=== PATIENT | female | born 1960 | race Caucasian/White ===

== ENCOUNTER → 2017-02-27 | Outpatient (CLI) | payer BC ==
[~2017-02-27] MED LIST: AMIODARONE HCL200 MG PO; CARAFATE1 GM/10 ML PO; Eliquis PO; IRON325 M1 PO; LASIX20 MG PO; LEXAPRO10 MG PO; LEXAPRO20 MG PO; LISINOPRIL10 MG PO; MULTAQ400 MG PO; PACERONE100 MG PO; POTASSIUM CHLO10 MEQ PO; PRADAXA75 MG PO; PROPAFENONE HC325 MG PO; SYNTHROID175 MCG PO; SYNTHROID200 MCG PO; ULTRAM50 MG PO; XARELTO PO; XARELTO20 MG PO; XYZAL5 MG PO; ZESTRIL20 MG PO
== END ==
LOC: MAMMO 11:46
PROVIDERS: ATTEND Internal Medicine
DX: Z12.31 Encounter for screening mammogram for malignant neoplasm of breast (principal)
CPT/HCPCS: G0202

== ENCOUNTER → 2017-02-27 | Outpatient (CLI) | payer BC ==
--- NOTE | 2017-02-27 07:14 | Diagnostic Imaging Report ---
PROCEDURE:CHEST 2 VIEWS TECHNIQUE:PA and lateral chest INDICATION:Cough for 3 weeks COMPARISON:None. FINDINGS: The lungs are clear and symmetrically inflated. No pleural effusions. Upper limits of normal heart size for technique no abnormal central vasculature. The indwelling loop recorder. Intact skeleton. Upper abdominal surgical clips. CONCLUSION: No acute abnormality. Specifically, no evidence of pneumonia. Dictated by: Ranjith Menard M.D. on 02/27/2017 at 7:23 Electronically approved by: Ranjith Menard M.D. on 02/27/2017 at 7:23
== END ==
LOC: RAD 06:45
PROVIDERS: ATTEND Internal Medicine
DX: R05 Cough (principal)
CPT/HCPCS: 71020

== ENCOUNTER → 2017-04-17 | Outpatient (CLI) | payer BC ==
--- NOTE | 2017-04-27 22:59 | Polysomnography ---
DATE OF STUDY: April 17, 2017 TITRATION POLYSOMNOGRAM HISTORY: This is a 56-year-old female with snoring, apneas and insomnia. She has a history of obstructive sleep apnea and uses CPAP, thyroid disorder, allergies, depression, hypertension, atrial fibrillation, gastric bypass surgery in 2006. Current medications include Synthroid, Lexapro, lisinopril, Xarelto, other cardiac medications. [place] sleepiness scale score is 12. BMI is 35.1. Patient presents for a titration polysomnogram. FINDINGS: Polysomnogram reveals a total sleep time of 253.5 minutes with sleep efficiency of 79.4%. CPAP was initiated at 5 cm of water and incrementally increased to 11 cm of water, delivered using a ResMed AirFit P10 medium sized nasal pillows interface, heated humidifier. Sleep apnea was optimally controlled at the pressure setting of 11 cm of water where the apnea-hypopnea index was zero events per hour and the lowest oxygen saturation was 95%. REM sleep was studied in the supine position at this setting. Due to significant air leak, the nasal pillows interface had to be used with chin strap. Periodic limb movements while awake were noted during this study. Furthermore, a total of 649 periodic limb movements in sleep were noted for periodic limb movement index of 110.2 events per hour. These events often involved ankle flexion and foot flexion maneuvers at most. These were not often associated with EEG arousals. The periodic limb movements at sleep tended to extinguish after 2:05 a.m. Single lead EKG analysis demonstrated sinus rhythm and was otherwise unremarkable. INTERPRETATION: This overnight CPAP titration study revealed, 1. Significant improvement in terms of alleviation of obstructive sleep apnea at the optimal CPAP pressure of 11 cm of water, delivered using a medium ResMed AirFit P10 nasal pillows interface, heated humidifier and chin strap. The same settings are recommended for use during sleep. 2. Periodic limb movements when awake and when asleep. Periodic leg movements in sleep index was 110.2 events per hour. Additional movements were noted when awake. Periodic limb movements can be seen during CPAP titration and may subside after compliant use of CPAP. Periodic limb movement disorder (periodic limb movements of sleep disorder) can be associated with or secondary to conditions such as restless legs syndrome, iron deficiency anemia, electrolyte imbalance such as hypomagnesemia, peripheral neuropathy, and use of certain medications. These limb movements should be addressed if they are bothering the patient when awake. If they continue to be associated with clinical sleep disturbances or complaints of daytime fatigue, a full work up with possible escalation in medicines should be considered. Antelmo Polo M.D. [facility] Certified in Sleep Medicine Job#: [id number] GE MTDD
== END ==
LOC: SLEEP 20:13
PROVIDERS: ATTEND Internal Medicine
DX: G47.33 Obstructive sleep apnea (adult) (pediatric) (principal)
CPT/HCPCS: 95811

== ENCOUNTER → 2017-06-03 | Outpatient (CLI) | payer BC ==
--- NOTE | 2017-06-03 09:04 | Diagnostic Imaging Report ---
Exam: Left shoulderCT without contrast. History: Shoulder pain. Injury. Decreased range of motion. Comparison:None Technique: Utilizing a 64-slice multidetector CT, axial imaging was performed through the left shoulder without IV contrast. Multiplanar reformation was performed. Findings: There is no acute fracture, subluxation or avascular necrosis. Moderate degenerative changes are seen at the acromioclavicular joint with undersurface spurring and narrowing of the supraspinatus tendon outlet. The rotator cuff muscles are normal in size and morphology. There is mild degenerative arthrosis at the glenohumeral joint. The visualized portion of the left lung is grossly unremarkable. Metallic foreign body in the superficial anterior left chest. Impression: Scattered degenerative arthrosis about the left shoulder. No osseous erosion. Signed by: Dr. Uvaldo Jane M.D. on 06/03/2017 9:00 AM
== END ==
LOC: CT 06:05
PROVIDERS: ATTEND Internal Medicine
DX: S49.92XA Unspecified injury of left shoulder and upper arm, initial encounter (principal)

== ENCOUNTER 2017-09-09 08:46 | Emergency (ER) | payer BC | END 2017-09-09 09:01 | disposition short-term general hospital (02) | LOC: ER 08:46 | DX: S69.91XA Unspecified injury of right wrist, hand and finger(s), initial encounter (principal) ==

== ENCOUNTER → 2017-09-09 | Outpatient (CLI) | payer BC ==
--- NOTE | 2017-09-09 11:24 | Diagnostic Imaging Report ---
PROCEDURE:HAND RIGHT 3 VIEWS AP \T\ LAT COMPARISON:None. INDICATIONS:POST FALL FRIDAY. PAIN/BRUISING TO POSTERIOR HAND/MEDIAL WRIST FINDINGS: 3 views of the right hand (AP, lateral, and oblique) There are no fractures, dislocations, lytic or blastic lesions. The bones are well-mineralized. The soft-tissues are unremarkable. There are degenerative changes of the DIP joints and at the basilar joint of the thumb. The there is narrowing of the radiocarpal joints. CONCLUSION: No acute radiographic abnormality of the right hand. Dictated by: Ezra Alan M.D. on 09/09/2017 at 11:29 Electronically approved by: Ezra Alan M.D. on 09/09/2017 at 11:29
== END ==
LOC: RAD 09:58
PROVIDERS: ATTEND Internal Medicine
DX: M79.641 Pain in right hand (principal)

== ENCOUNTER → 2017-09-11 | Outpatient (CLI) | payer BC | LOC: SLEEP 14:08 | PROVIDERS: ATTEND Internal Medicine | DX: G47.33 Obstructive sleep apnea (adult) (pediatric) (principal) | CPT/HCPCS: 95810 ==

== ENCOUNTER → 2017-11-10 | Outpatient (CLI) | payer BC | LOC: RAD 12:35 | PROVIDERS: ATTEND Specialist | DX: I87.2 Venous insufficiency (chronic) (peripheral) (principal) | CPT/HCPCS: 93970 ==

== ENCOUNTER 2017-12-08 05:06 | Emergency (ER) | payer BC ==
[~2017-12-08] VITALS: Ht 160 cm; Wt 85.3 kg
[2017-12-08] MEDS ORDERED: SILVER NITRATE SWABS ONE (05:15)
[2017-12-08] MEDS ORDERED: SILVER NITRATE SWABS TOP ONE (05:30)
[2017-12-08 05:33] VITALS: BP 137/74
== END 2017-12-08 05:45 | disposition home or self-care (01) ==
LOC: ER 05:06
DX: I83.891 Varicose veins of right lower extremity with other complications (principal); I10 Essential (primary) hypertension; E03.9 Hypothyroidism, unspecified; I48.91 Unspecified atrial fibrillation; F41.9 Anxiety disorder, unspecified; Z98.84 Bariatric surgery status
CPT/HCPCS: 99283

== ENCOUNTER 2018-03-25 05:45 | Emergency (ER) | payer BC ==
[~2018-03-25] VITALS: Ht 160 cm; Wt 85.3 kg
[2018-03-25 06:08] LABS: BASOPHILS # (AUTO) 0.1 (0.0-0.1); EOSINOPHILS # (AUTO) 0.1 (0.0-0.4); EOSINOPHILS % 0.8 % (0.0-6.0); HEMATOCRIT 40.3 % (34.2-44.1); HEMOGLOBIN 13.3 g/dL (12.0-16.0); LYMPHOCYTES # (AUTO) 2.4 (1.0-3.2); LYMPHOCYTES % 26.8 % (18.0-39.1); MEAN CORPUSCULAR HEMOGLOBIN 30.4 pg (28-32); MEAN CORPUSCULAR VOLUME 92.2 fL (81-99); MONOCYTES % 10.6 % (4.4-11.3); NEUTROPHILS # (AUTO) 5.5 (2.1-6.9); NEUTROPHILS % 60.6 % (38.7-80.0); PLATELET COUNT 347 x10e3/uL (140-360); RED BLOOD COUNT 4.37 x10e6/uL (3.6-5.1); RED CELL DISTRIBUTION WIDTH 13.2 % (11.7-14.4)
[2018-03-25 06:20] LABS: INR 0.97; PROTHROMBIN TIME 13.8 seconds (11.9-14.5)
[2018-03-25 06:21] LABS: PARTIAL THROMBOPLASTIN TIME 25.3 seconds (23.8-35.5)
[2018-03-25 06:26] LABS: ALANINE AMINOTRANSFERASE 17 IU/L (0-55); ALBUMIN 3.6 g/dL (3.5-5.0); ALBUMIN/GLOBULIN RATIO 1.1 (0.8-2.0); ALKALINE PHOSPHATASE 111 IU/L (40-150); ANION GAP 13.6 mmol/L (8-16); BLOOD UREA NITROGEN 11 mg/dL (7-26); BUN/CREATININE RATIO 15 (6-25); CALCIUM 9.1 mg/dL (8.4-10.2); CARBON DIOXIDE 24 mmol/L (22-29); CHLORIDE 101 mmol/L (98-107); CREATINE KINASE 108 IU/L (29-168); CREATININE, SERUM 0.71 mg/dL (0.57-1.11); EST GLOMERULAR FILTRATION RATE > 60 ML/MIN (60-); GLUCOSE 144 mg/dL (74-118); POTASSIUM 3.6 mmol/L (3.5-5.1); SODIUM 135 mmol/L (136-145)
--- NOTE | 2018-03-25 06:40 | Diagnostic Imaging Report ---
EXAMINATION: CHEST SINGLE (PORTABLE) INDICATION: Shortness of breath. COMPARISON: Chest x-ray 02/27/2017 FINDINGS: AP view TUBES and LINES: None. LUNGS: Lungs are well inflated. Lungs are clear. There is no evidence of pneumonia or pulmonary edema. PLEURA: No pleural effusion or pneumothorax. HEART AND MEDIASTINUM: The cardiomediastinal silhouette is unremarkable. BONES AND SOFT TISSUES: No acute osseous lesion. Soft tissues are unremarkable. UPPER ABDOMEN: No free air under the diaphragm. IMPRESSION: No acute thoracic abnormality. Signed by: DR. Jake Aguiar MD on 03/25/2018 6:36 AM
== END 2018-03-25 06:49 | disposition home or self-care (01) ==
LOC: ER 05:45
DX: R00.2 Palpitations (principal); I48.0 Paroxysmal atrial fibrillation
CPT/HCPCS: 36415; 71045; 80053; 82550; 82553; 84484; 85025; 85610; 85730; 93005; 99283

== ENCOUNTER 2019-05-10 21:58 | Emergency (ER) | payer BC ==
[~2019-05-10] VITALS: Ht 160 cm; Wt 85.3 kg
[2019-05-10] MEDS ORDERED: GLUCAGON FOR INJ 1 MG VIAL IV ONE (22:15)
[2019-05-10 22:16] LABS: BASOPHILS # (AUTO) 0.1 (0.0-0.1); BASOPHILS % 0.9 % (0.0-1.0); EOSINOPHILS # (AUTO) 0.3 (0.0-0.4); EOSINOPHILS % 3.1 % (0.0-6.0); HEMATOCRIT 38.7 % (34.2-44.1); HEMOGLOBIN 12.6 g/dL (12.0-16.0); LYMPHOCYTES # (AUTO) 5.6 (1.0-3.2); LYMPHOCYTES % 58.4 % (18.0-39.1); MEAN CORPUSCULAR HEMOGLOBIN 30.5 pg (28-32); MEAN CORPUSCULAR HGB CONC 32.6 g/dL (31-35); MEAN CORPUSCULAR VOLUME 93.7 fL (81-99); MONOCYTES # (AUTO) 0.8 (0.2-0.8); MONOCYTES % 8.5 % (4.4-11.3); NEUTROPHILS # (AUTO) 2.8 (2.1-6.9); PLATELET COUNT 357 x10e3/uL (140-360); RED BLOOD COUNT 4.13 x10e6/uL (3.6-5.1); RED CELL DISTRIBUTION WIDTH 14.7 % (11.7-14.4)
[2019-05-10 22:31] LABS: ANION GAP 12.7 mmol/L (8-16); BLOOD UREA NITROGEN 13 mg/dL (7-26); BUN/CREATININE RATIO 16 (6-25); CALCIUM 8.4 mg/dL (8.4-10.2); CARBON DIOXIDE 23 mmol/L (22-29); CHLORIDE 106 mmol/L (98-107); CREATININE, SERUM 0.83 mg/dL (0.57-1.11); EST GLOMERULAR FILTRATION RATE > 60 ML/MIN (60-); GLUCOSE 98 mg/dL (74-118); POTASSIUM 3.7 mmol/L (3.5-5.1); SODIUM 138 mmol/L (136-145)
[2019-05-11] MEDS ORDERED: SODIUM CHLORIDE 0.9% 1000ML 1,000 ML IV SCH (00:30)
[2019-05-11 01:23] VITALS: BP 111/78
== END 2019-05-11 01:42 | disposition home or self-care (01) ==
LOC: ER 21:58
DX: R42 Dizziness and giddiness (principal); E11.649 Type 2 diabetes mellitus with hypoglycemia without coma; I95.9 Hypotension, unspecified
CPT/HCPCS: 36415; 80048; 82948; 85025; 99284; J1610; J7030